=== PATIENT | female | born 1990 | race Caucasian/White ===

== ENCOUNTER 2019-06-08 17:13 | Emergency (ER) | payer OTHER ==
[2019-06-08] MEDS ORDERED: Acetaminophen 325 MG Tab PO ONE (17:50)
[2019-06-08] MEDS ORDERED: LORazepam 0.5 MG Tab PO ONE (17:50)
--- NOTE | 2019-06-08 18:03 | EDM.PDOC ---
ED HPI GENERAL MEDICAL PROBLEM - General Chief Complaint: General Stated Complaint: BODYACHE/BACK PAIN Time Seen by Provider: 06/08/19 17:37 Source of Information: Reports: Patient, Police (welfare officer present), RN Notes Reviewed History Limitations: Reports: No Limitations - History of Present Illness INITIAL COMMENTS - FREE TEXT/NARRATIVE: Patient is a 28-year-old female who presents to the ED for the evaluation of some generalized body pains. Patient is 39 weeks , and was cleared by OB at this time, there is nothing wrong with the patient, from an OB standpoint. [facility] in [facility]. Patient states that for the past couple months she has been having some intermittent pains, she states it does hurt to walk quite a bit. She is complaining of generalized excruciating pain over her entire body, does worsen with movement. She does not relate any trauma. She has been given some Tylenol for this at the alf. This does seem to help a little bit. Patient states that the pain did worsen today however at 2 PM. She was brought to [place] to have her evaluated, and then brought here for further evaluation of the symptoms. Patient does have a history of anxiety, and PTSD. 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 Denies: Diarrhea, Vomiting Musculoskeletal: Reports: Muscle Pain (generalized myalgias, seem to be intermittent, worsen w movement and do move around body.) Psychiatric: Reports: Anxiety ED EXAM, GENERAL - Physical Exam Exam: See Below Exam Limited By: No Limitations General Appearance: Alert, WD/WN, No Apparent Distress Eye Exam: Bilateral Eye: EOMI, Normal Inspection, PERRL Ears: Normal External Exam Nose: Normal Inspection Throat/Mouth: Normal Inspection, Normal Lips, Normal Teeth, Normal Gums, Normal Oropharynx, Normal Voice, No Airway Compromise Head: Atraumatic, Normocephalic Neck: Normal Inspection Respiratory/Chest: No Respiratory Distress, Lungs Clear, Normal Breath Sounds, No Accessory Muscle Use, Chest Non-Tender Cardiovascular: Normal Peripheral Pulses, Regular Rate, Rhythm, No Murmur GI/Abdominal: Normal Bowel Sounds, Soft, Non-Tender, No Distention, No Mass Extremities: Normal Inspection, Normal Capillary Refill Neurological: Alert, Oriented, Normal Cognition, No Motor/Sensory Deficits Psychiatric: Normal Affect, Normal Mood Skin Exam: Warm, Dry, Intact, Normal Color, No Rash Course - Vital Signs Last Recorded V/S: Last Vital Signs Temp 98.8 F 06/08/19 19:25 Pulse 98 06/08/19 19:25 Resp 18 06/08/19 19:25 BP 117/86 06/08/19 19:25 Pulse Ox 94 L 06/08/19 19:25 - Orders/Labs/Meds Meds: Medications Discontinued Medications Generic Name Dose Route Start Last Admin Trade Name Yaw PRN Reason Stop Dose Admin Acetaminophen 975 mg 06/08/19 17:50 06/08/19 18:42 Tylenol PO 06/08/19 17:51 975 mg NOW ONE Administration Lorazepam 1 mg 06/08/19 17:50 06/08/19 18:42 Ativan PO 06/08/19 17:51 1 mg ONETIME ONE Administration - Re-Assessments/Exams Free Text/Narrative Re-Assessment/Exam: 06/08/19 18:22 Patient presents to the ED for evaluation of her all over body pain. I do suspect this is mostly anxiety in nature. I did provide 975 mg of Tylenol, and 1 mg Ativan for initial management. Will reassess when the meds have been given. Departure - Departure Time of Disposition: 18:52 Disposition: Home, Self-Care 01 Condition: Fair Clinical Impression: Anxiety as acute reaction to exceptional stress - Discharge Information *PRESCRIPTION DRUG MONITORING PROGRAM REVIEWED*: No *COPY OF PRESCRIPTION DRUG MONITORING REPORT IN PATIENT EVA: No Prescriptions: LORazepam [Ativan] 1 mg PO TID PRN #12 tab PRN Reason: Anxiety Instructions: Anxiety Referrals: Melody Ayon MD [Primary Care Provider] - Forms: ED Department Discharge Additional Instructions: You were evaluated in the ER today regarding your body pain and anxiety. You were given 975 mg of Tylenol for your pain, and 1 mg Ativan for anxiety. This did seem to help relieve most of your symptoms. You will be given a prescription for Ativan, 1 mg 3 times a day as needed for further anxiety. Ativan can be addictive, but if used add an as-needed basis during , this should not provide any detrimental effects to the fetus or you. Please use sparingly. Unfortunately, the regular muscle relaxers we use are all contraindicated in . Recommend you take Tylenol, at least 500 mg every 6 hours for pain relief. Do not exceed 4000 mg in a 24-hour time span. Please try to rest as much as possible over the next week, until your due date. Recommend bedrest as allowed. Please return to the ER at any time if your symptoms change or worsen. Sepsis Event Note - Evaluation Sepsis Screening Result: No Definite Risk - Focused Exam Vital Signs: Vital Signs Temp Pulse Resp BP Pulse Ox 06/08/19 19:25 98.8 F 98 18 117/86 94 L 06/08/19 17:24 98.6 F Date Exam was Performed: 06/08/19 Time Exam was Performed: 21:01
== END 2019-06-08 19:25 | disposition home or self-care (01) ==
LOC: JD.ED 17:13
DX: O99.343 Other mental disorders complicating pregnancy, third trimester (principal); F41.1 Generalized anxiety disorder; F43.0 Acute stress reaction; Z3A.39 39 weeks gestation of pregnancy; Z87.891 Personal history of nicotine dependence
CPT/HCPCS: 99283; A9270

== ENCOUNTER 2019-06-14 08:24 | Inpatient (IN) | payer OTHER ==
[2019-06-14] MEDS ORDERED: Ondansetron 4 MG/2 ML SDV IVPUSH PRN (19:13)
[2019-06-14] MEDS ORDERED: Lidocaine 1% 50 ML MDV INJECT ONE (19:13)
[2019-06-14] MEDS ORDERED: Acetaminophen 325 MG Tab PO PRN (19:13)
[2019-06-14] MEDS ORDERED: Calcium Carbonate 500 MG Tab.Chew PO PRN (19:13)
[2019-06-14] MEDS ORDERED: Sodium Chloride 0.9% 10 ML Syringe FLUSH PRN (19:13)
[2019-06-14] MEDS ORDERED: Oxytocin/Lactated Ringers 10 UNIT/1,000 ML BAG IV SCH ×2 (19:15)
[2019-06-14] MEDS: Lactated Ringers 1,000 ML IV SCH (22:46)
[2019-06-15] MEDS ORDERED: Nalbuphine 10 MG/ML Syringe IM ONE (06:57)
[2019-06-15] MEDS ORDERED: ePHEDrine 50 MG/ML SDV IVPUSH PRN (07:06)
[2019-06-15] MEDS ORDERED: Ondansetron 4 MG/2 ML SDV IVPUSH PRN (07:06)
[2019-06-15] MEDS ORDERED: fentaNYL 100 MCG/2 ML SDV EPIDUR PRN (07:06)
--- NOTE | 2019-06-15 07:09 | PCM.PREANE ---
Preanesthetic Assessment - Anesthesia/Transfusion/Family Hx Anesthesia History: Prior Anesthesia Without Reaction Family History of Anesthesia Reaction: No Transfusion History: No Prior Transfusion(s) Intubation History: Unknown - Review of Systems General: No Symptoms Pulmonary: No Symptoms (Former Smoker:) Cardiovascular: No Symptoms Gastrointestinal: No Symptoms Neurological: No Symptoms Other: Reports: None, Anxiety (PTSD, Bipolar) - Physical Assessment NPO Status Date: 06/15/19 Vital Signs: Last Vital Signs Temp 37.0 C 06/14/19 19:13 Pulse 95 06/14/19 21:34 Resp 15 06/14/19 19:13 BP 123/79 06/14/19 21:02 Pulse Ox 97 06/14/19 19:22 Height: 1.7 m Weight: 94.347 kg ASA Class: 2 Mental Status: Alert & Oriented x3 Airway Class: Mallampati = 2 Dentition: Reports: Normal Dentition, Caries Thyro-Mental Finger Breadths: 3 Mouth Opening Finger Breadths: 3 ROM/Head Extension: Full Lungs: Clear to Auscultation, Normal Respiratory Effort Cardiovascular: Regular Rate, Regular Rhythm, No Murmurs - Lab Values: Laboratory Last Values WBC 7.96 K/mm3 (3.98-10.04) 06/14/19 19: RBC 4.13 M/mm3 (3.98-5.22) 06/14/19 19:29 Hgb 12.1 gm/dl (11.2-15.7) 06/14/19 19:29 Hct 37.5 % (34.1-44.9) 06/14/19 19: MCV 90.8 fl (79.4-94.8) 06/14/19 19: MCH 29.3 pg (25.6-32.2) 06/14/19 19:29 MCHC 32.3 g/dl (32.2-35.5) 06/14/19 19:29 RDW Std Deviation 48.7 fL (36.4-46.3) H 06/14/19 19:29 Plt Count 181 K/mm3 (182-369) L 06/14/19 19:29 MPV 10.9 fl (9.4-12.3) 06/14/19 19: Neut % (Auto) 68.1 % (34.0-71.1) 06/14/19 19:29 Lymph % (Auto) 22.0 % (19.3-51.7) 06/14/19 19:29 Turner % (Auto) 7.7 % (4.7-12.5) 06/14/19 19: Eos % (Auto) 0.9 (0.7-5.8) 06/14/19: Baso % (Auto) 0.3 % (0.1-1.2) 06/14/19 19: Neut # (Auto) 5.43 K/mm3 (1.56-6.13) 06/14/19 19: Lymph # (Auto) 1.75 K/mm3 (1.18-3.74) 06/14/19: Turner # (Auto) 0.61 K/mm3 (0.24-0.36) H 06/14/19 19: Eos # (Auto) 0.07 K/mm3 (0.04-0.36) 06/14/19 19: Baso # (Auto) 0.02 K/mm3 (0.01-0.08) 06/14/19 19:29 Urine Opiates Screen Negative (GEOSNA=293) 06/14/19 19:50 Ur Buprenorphine Scrn Negative (CUTOFF=10) 06/14/19 19:50 Ur Oxycodone Screen Negative (BVA8QT=121) 06/14/19 19:50 Urine Methadone Screen Negative (ZTXYOC=521) 06/14/19 19:50 Ur Propoxyphene Screen Negative (CGUIZO=032) 06/14/19 19:50 Ur Barbiturates Screen Negative (AVVWOD=119) 06/14/19 19:50 Ur Tricyclics Screen Negative (ZQJPMJ=620) 06/14/19 19:50 Ur Phencyclidine Scrn Negative (CUTOFF=25) 06/14/19 19:50 Ur Amphetamine Screen Negative (HAXYKY=981) 06/14/19 19:50 U Methamphetamines Scrn Negative (UIKUJG=582) 06/14/19 19:50 U Benzodiazepines Scrn Negative (ONXYZH=549) 06/14/19 19:50 U Cocaine Metab Screen Negative (KEQGTU=632) 06/14/19 19:50 U Marijuana (THC) Screen Negative (CUTOFF=50) 06/14/19 19:50 RPR Non-reactive (NONREACTIVE) 06/14/19 19:29 MRSA (PCR) Negative 06/14/19 19:50 Above labs reviewed and noted and within acceptable ranges to proceed with epidural if desired. 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: 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: Psychiatric History: Reports: Anxiety, Bipolar, PTSD - Infectious Disease History Infectious Disease History: Reports: MRSA Other Infectious Disease History: Cleared for MRSA in the clinic, 2nd nasal swab taken today - Past Surgical History HEENT Surgical History: Reports: Other (See Below) Other HEENT Surgeries/Procedures: wisdom teeth-removed as a teenager GI Surgical History: Reports: None - SUBSTANCE USE Smoking Status *Q: Former Smoker Tobacco Use Within Last Twelve Months: Cigarettes Second Hand Smoke Exposure: No Recreational Drug Use History: No - HOME MEDS Home Medications: Home Meds LORazepam [Ativan] 1 mg PO TID PRN #12 tab 06/08/19 [Rx] Vilazodone Hydrochloride [Viibryd] 20 mg PO DAILY 06/08/19 [History] Calcium Carbonate [Tums] 500 mg PO ASDIRECTED 06/14/19 [History] [place] Butter/Phenylephrine [Preparation H Supp] 1 each RC ASDIRECTED 06/14/19 [ History] Docusate Sodium [Colace] 1 cap PO DAILY 06/14/19 [History] CSZ200/Iron Fumarate/FA/DSS [ 19 Tablet] 1 each PO DAILY 06/14/19 [ History] - CURRENT (IN HOUSE) MEDS Current Meds: Current Medications Acetaminophen (Tylenol) 650 mg PO Q4H PRN PRN Reason: Pain (Mild 1-3) and fever Calcium Carbonate/Glycine (Tums) 1,000 mg PO Q2H PRN PRN Reason: Indigestion Lactated Ringer's (Ringers, Lactated) 1,000 mls @ 100 mls/hr IV ASDIRECTED BRIANA Last Admin: 06/14/19 22:46 Dose: 100 mls/hr Oxytocin/Lactated Ringer's (Pitocin In Lr 10 Units/1,000 Ml) 10 unit in 1,000 mls @ 12 mls/hr IV TITRATE BRIANA; Protocol Last Titration: 06/15/19 03:15 Dose: 20 munits/min, 120 mls/hr Oxytocin/Lactated Ringer's (Pitocin In Lr 10 Units/1,000 Ml) 10 unit in 1,000 mls @ 500 mls/hr IV .CONTINUOUS BRIANA Ondansetron HCl (Zofran) 4 mg IVPUSH Q4H PRN PRN Reason: Nausea/Vomiting Sodium Chloride (Saline Flush) 10 ml FLUSH ASDIRECTED PRN PRN Reason: Keep Vein Open Discontinued Medications Lidocaine HCl (Xylocaine 1%) 50 ml INJECT ONETIME ONE Stop: 06/14/19 19:14 Nalbuphine HCl (Nubain) 10 mg IM ONETIME ONE Stop: 06/15/19 06:58 Last Admin: 06/15/19 07:04 Dose: Not Given
[2019-06-15] MEDS ORDERED: Bupivacaine/fentaNYL/NS 100 ML Bag EPIDUR SCH (07:15)
[2019-06-15] MEDS: Lactated Ringers 1,000 ML IV SCH (07:48)
--- NOTE | 2019-06-15 08:15 | PCM.SN ---
- Free Text/Narrative Note: Anesthesia Note: Start: 0750 Stop: 0815 Anesthesia requested for epidural placement. Upon arrival patient dilated to 8cm. Assessment and consent obtained. Upon the placement of epidural, patient c/o of increased pressure, now complete. No epidural placed. Verbal reassurance given. Dr. Ayon called and present for delivery.
[2019-06-15] MEDS ORDERED: Misoprostol 200 MCG Tab ONE (08:27)
--- NOTE | 2019-06-15 08:47 | PCM.SN ---
- Free Text/Narrative Note: Stage I - Patient presented for induction of labor. Pitocin. AROM of meconium. Progressed to complete with reassuring FHT. Stage II - of viable male, 4210g, 7/9 APGARS at 824. Head delivered in controlled manner over intact perineum. Body and shoulders atraumatically. To maternal abdomen. Initially no cry but but vigorous by 1 minute. Cord clamped and cut and to warmer. Cord blood and cord segment sent. Stage III - of intact placenta, 3vc, no laceration. EBL 500. Pitocin and cytotec buccal given.
[2019-06-15] MEDS ORDERED: Benzocaine/Menthol 20%-0.5% Spray 56 GM Canister TOP PRN (09:08)
[2019-06-15] MEDS ORDERED: Hydrocortisone Acetate 25 MG Supp RECTAL PRN (09:08)
[2019-06-15] MEDS ORDERED: Witch Hazel Medicated Pads 40/Jar TOP PRN (09:08)
[2019-06-15] MEDS ORDERED: Acetaminophen 325 MG Tab PO PRN (14:52)
[2019-06-15] MEDS ORDERED: Docusate Sodium 100 MG Cap PO PRN (14:52)
[2019-06-15] MEDS: Ibuprofen 600 MG Tab PO PRN ×2 (15:02→22:41)
[2019-06-15] MEDS ORDERED: LORazepam 1 MG Tab PO PRN (18:24)
[2019-06-15] MEDS: Cyclobenzaprine 10 MG Tab PO PRN (19:04)
[2019-06-15] MEDS: LORazepam 1 MG Tab PO PRN (22:41)
--- NOTE | 2019-06-16 04:14 | PCM.LDHP ---
L&D History of Present Illness - General Date of Service: 06/14/19 Admit Problem/Dx: Admission Diagnosis/Problem Admission Diagnosis/Problem Source of Information: Patient - History of Present Illness Introduction:: 29 year old here for induction. Pain Score: 2 - Related Data Allergies/Adverse Reactions: Allergies Allergy/AdvReac Type Severity Reaction Status Date / Time No Known Allergies Allergy Verified 06/14/19 19:12 Home Medications: Home Meds LORazepam [Ativan] 1 mg PO TID PRN #12 tab 06/08/19 [Rx] Vilazodone Hydrochloride [Viibryd] 20 mg PO DAILY 06/08/19 [History] Calcium Carbonate [Tums] 500 mg PO ASDIRECTED 06/14/19 [History] [place] Butter/Phenylephrine [Preparation H Supp] 1 each RC ASDIRECTED 06/14/19 [ History] Docusate Sodium [Colace] 1 cap PO DAILY 06/14/19 [History] PHT178/Iron Fumarate/FA/DSS [ 19 Tablet] 1 each PO DAILY 06/14/19 [ History] Past Medical History - Past Health History Medical/Surgical History: Denies Medical/Surgical History HEENT History: Reports: None 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: Psychiatric History: Reports: Anxiety, Bipolar, PTSD - Infectious Disease History Infectious Disease History: Reports: MRSA Other Infectious Disease History: Cleared for MRSA in the clinic, 2nd nasal swab taken today - Past Surgical History HEENT Surgical History: Reports: Other (See Below) Other HEENT Surgeries/Procedures: wisdom teeth-removed as a teenager GI Surgical History: Reports: None Social & Family History - Family History Family Medical History: Noncontributory - Tobacco Use Smoking Status *Q: Former Smoker Years of Tobacco use: 15 Packs/Tins Daily: 0.5 Used Tobacco, but Quit: Yes Month/Year Tobacco Last Used: 11/2018 Second Hand Smoke Exposure: No - Caffeine Use Caffeine Use: Reports: None - Recreational Drug Use Recreational Drug Use: No H&P Review of Systems - Review of Systems: Review Of Systems: See Below General: Reports: No Symptoms HEENT: Reports: No Symptoms Pulmonary: Reports: No Symptoms Cardiovascular: Reports: No Symptoms Gastrointestinal: Reports: No Symptoms Genitourinary: Reports: No Symptoms Musculoskeletal: Reports: No Symptoms Skin: Reports: No Symptoms Psychiatric: Reports: No Symptoms Neurological: Reports: No Symptoms Hematologic/Lymphatic: Reports: No Symptoms Immunologic: Reports: No Symptoms L&D Exam - Exam Exam: See Below - Vital Signs Vital Signs: Last Vital Signs Temp 37.2 C 06/15/19 20:39 Pulse 94 06/15/19 20:39 Resp 15 06/15/19 20:39 BP 107/63 06/15/19 20:39 Pulse Ox 98 06/15/19 20:39 Weight: 94.347 kg - OB Specific Contraction Intensity: Moderate to Strong Movement: Active Heart Tones: Present Heart Rate (FHR) Variability: Moderate (6-25 bmp) Presentation: Vertex - Bryant Score Bryant Score Cervix Position: Anterior Bryant Score Consistency: Soft Bryant Score Effacement: 51-70% Bryant Score Dilation: 3-4 cm Bryant Score Infant's Station: -2 Bryant Score Total: 9 - Exam General: Alert, Oriented HEENT: PERRLA, Conjunctiva Clear, EACs Clear, EOMI, Hearing Intact, Mucosa Moist & Amery, Nares Patent, Normal Nasal Septum, Posterior Pharynx Clear, TMs Clear Neck: Supple, Trachea Midline Lungs: Clear to Auscultation, Normal Respiratory Effort Cardiovascular: Regular Rate, Regular Rhythm GI/Abdominal Exam: Normal Bowel Sounds, Soft, Non-Tender, No Organomegaly, No Distention, No Abnormal Bruit, No Mass, Pelvis Stable Rectal Exam: Normal Exam, Normal Rectal Tone Extremities: Normal Inspection, Normal Range of Motion, Non-Tender, No Pedal Edema, Normal Capillary Refill Skin: Warm, Dry, Intact Neurological: Cranial Nerves Intact, Reflexes Equal Bilateral Psychiatric: Alert, Normal Affect, Normal Mood - Patient Data Result Diagrams: 06/14/19 19:29 Problem List Initiated/Reviewed/Updated: Yes Orders Last 24hrs: Active Orders 24 hr Category Date Time Status Activity as Tolerated [RC] PER UNIT ROUTINE Care 06/15/19 09:08 Active Notify Provider [RC] ASDIRECTED Care 06/15/19 07:06 Inactive Oxygen Therapy [RC] ASDIRECTED Care 06/15/19 07:06 Inactive Pulse Oximetry [RC] ASDIRECTED Care 06/15/19 07:06 Inactive Vital Signs [RC] 09,15,21,03 Care 06/15/19 09:08 Active CBC W/O DIFF,HEMOGRAM [HEME] AM Lab 06/16/19 05:11 Ordered Acetaminophen [Tylenol] Med 06/15/19 14:52 Active 650 mg PO Q4H PRN Benzocaine/Menthol [Dermoplast Pain Relief [place]] Med 06/15/19 09:08 Active See Dose Instructions TOP ASDIRECTED PRN Cyclobenzaprine [Flexeril] Med 06/15/19 18:24 Active 10 mg PO TID PRN Docusate Sodium [Colace] Med 06/15/19 14:52 Active 100 mg PO BID PRN Hydrocortisone Acetate [Anucort-HC] Med 06/15/19 09:08 Active 25 mg RECTAL BID PRN Ibuprofen [Motrin] Med 06/15/19 14:52 Active 600 mg PO Q4H PRN LORazepam [Ativan] Med 06/15/19 20:06 Active 1 mg PO Q6H PRN witch Annabella [Tucks] Med 06/15/19 09:08 Active 1 pad TOP ASDIRECTED PRN Assess Lochia [WOMSER] Per Unit Routine Oth 06/15/19 09:08 Ordered Assess Uterine Involution [WOMSER] Per Unit Routine Oth 06/15/19 09:08 Ordered Breast Pump [WOMSER] Per Unit Routine Oth 06/15/19 09:08 Ordered Heat Therapy [OM.PC] PRN Oth 06/15/19 09:08 Ordered Heat Therapy [OM.PC] PRN Oth 06/16/19 09:08 Ordered Medication Administration Instruction [OM.PC] Routine Oth 06/15/19 09:08 Ordered Perineal Care [OM.PC] Per Unit Routine Oth 06/15/19 09:08 Ordered Sitz Bath [OM.PC] Per Unit Routine Oth 06/15/19 09:08 Ordered Medication Orders Acetaminophen (Tylenol) 650 mg PO Q4H PRN PRN Reason: Pain Last Admin: 06/15/19 16:56 Dose: 650 mg Benzocaine/Menthol (Dermoplast Pain Relief [place]) 0 gm TOP ASDIRECTED PRN PRN Reason: Perineal Comfort Measure Cyclobenzaprine HCl (Flexeril) 10 mg PO TID PRN PRN Reason: muscle ache Last Admin: 06/15/19 19:04 Dose: 10 mg Docusate Sodium (Colace) 100 mg PO BID PRN PRN Reason: Constipation Hydrocortisone Acetate (Anucort-Hc) 25 mg RECTAL BID PRN PRN Reason: Hemorrhoid pain Ibuprofen (Motrin) 600 mg PO Q4H PRN PRN Reason: Pain Last Admin: 06/15/19 22:41 Dose: 600 mg Admin: 06/15/19 15:02 Dose: 600 mg Lorazepam (Ativan) 1 mg PO Q6H PRN PRN Reason: ANXIETY Last Admin: 06/15/19 22:41 Dose: 1 mg Witch Annabella (Tucks) 1 pad TOP ASDIRECTED PRN PRN Reason: Pain Assessment/Plan Comment:: Here for induction. Pitocin. AROM clear fluid.
--- NOTE | 2019-06-16 04:18 | PCM.PNPP ---
- General Info Date of Service: 06/16/19 Functional Status: Reports: Pain Controlled - Review of Systems General: Reports: No Symptoms HEENT: Reports: No Symptoms Pulmonary: Reports: No Symptoms Cardiovascular: Reports: No Symptoms Gastrointestinal: Reports: No Symptoms Genitourinary: Reports: No Symptoms Musculoskeletal: Reports: No Symptoms Skin: Reports: No Symptoms Neurological: Reports: No Symptoms Psychiatric: Reports: No Symptoms - General Info Date of Service: 06/16/19 - Patient Data Vital Signs - Most Recent: Last Vital Signs Temp 37.2 C 06/15/19 20:39 Pulse 94 06/15/19 20:39 Resp 15 06/15/19 20:39 BP 107/63 06/15/19 20:39 Pulse Ox 98 06/15/19 20:39 Weight - Most Recent: 94.347 kg I&O - Last 24 Hours: Intake & Output 06/15/19 06/15/19 06/16/19 14:59 22:59 06:59 Intake Total 3320 Balance 3320 Med Orders - Current: Current Medications Acetaminophen (Tylenol) 650 mg PO Q4H PRN PRN Reason: Pain Last Admin: 06/15/19 16:56 Dose: 650 mg Benzocaine/Menthol (Dermoplast Pain Relief [place]) 0 gm TOP ASDIRECTED PRN PRN Reason: Perineal Comfort Measure Cyclobenzaprine HCl (Flexeril) 10 mg PO TID PRN PRN Reason: muscle ache Last Admin: 06/15/19 19:04 Dose: 10 mg Docusate Sodium (Colace) 100 mg PO BID PRN PRN Reason: Constipation Hydrocortisone Acetate (Anucort-Hc) 25 mg RECTAL BID PRN PRN Reason: Hemorrhoid pain Ibuprofen (Motrin) 600 mg PO Q4H PRN PRN Reason: Pain Last Admin: 06/15/19 22:41 Dose: 600 mg Lorazepam (Ativan) 1 mg PO Q6H PRN PRN Reason: ANXIETY Last Admin: 06/15/19 22:41 Dose: 1 mg Witch Annabella (Tucks) 1 pad TOP ASDIRECTED PRN PRN Reason: Pain Discontinued Medications Acetaminophen (Tylenol) 650 mg PO Q4H PRN PRN Reason: Pain (Mild 1-3) and fever Calcium Carbonate/Glycine (Tums) 1,000 mg PO Q2H PRN PRN Reason: Indigestion Ephedrine Sulfate (Ephedrine Sulfate) 5 mg IVPUSH ASDIRECTED PRN PRN Reason: Hypotension Fentanyl (Sublimaze) 100 mcg EPIDUR Q3H PRN PRN Reason: Pain Last Admin: 06/15/19 07:49 Dose: 100 mcg Fentanyl/Bupivacaine HCl (Fentanyl/Bupivacaine/Ns 2 Mcg-0.125% 100 Ml) 100 ml EPIDUR ASDIRECTED BRIANA Last Admin: 06/15/19 07:49 Dose: 100 ml Lactated Ringer's (Ringers, Lactated) 1,000 mls @ 100 mls/hr IV ASDIRECTED BRIANA Last Admin: 06/15/19 07:48 Dose: 100 mls/hr Oxytocin/Lactated Ringer's (Pitocin In Lr 10 Units/1,000 Ml) 10 unit in 1,000 mls @ 12 mls/hr IV TITRATE BRIANA; Protocol Last Titration: 06/15/19 03:15 Dose: 20 munits/min, 120 mls/hr Oxytocin/Lactated Ringer's (Pitocin In Lr 10 Units/1,000 Ml) 10 unit in 1,000 mls @ 500 mls/hr IV .CONTINUOUS BRIANA Lidocaine HCl (Xylocaine 1%) 50 ml INJECT ONETIME ONE Stop: 06/14/19 19:14 Last Admin: 06/15/19 22:15 Dose: Not Given Misoprostol (Cytotec) Confirm Administered Dose 600 mcg .ROUTE .STK-MED ONE Stop: 06/15/19 08:28 Last Admin: 06/15/19 10:48 Dose: 600 mcg Nalbuphine HCl (Nubain) 10 mg IM ONETIME ONE Stop: 06/15/19 06:58 Last Admin: 06/15/19 07:04 Dose: Not Given Ondansetron HCl (Zofran) 4 mg IVPUSH Q4H PRN PRN Reason: Nausea/Vomiting Ondansetron HCl (Zofran) 4 mg IVPUSH ONETIME PRN PRN Reason: Nausea/Vomiting Sodium Chloride (Saline Flush) 10 ml FLUSH ASDIRECTED PRN PRN Reason: Keep Vein Open - Interaction Support Person: Other (see below) - Recovery Exam Fundal Tone: Firm Fundal Level: At Umbilicus Fundal Placement: Midline Lochia Amount: Small Lochia Color: Rubra/Red Perineum Description: Intact, Minimal Bruising/Swelling Episiotomy/Laceration: None Bladder Status: Voiding Urinary Elimination: Voided - Exam General: Alert, Oriented HEENT: Pupils Equal Neck: Supple Lungs: Clear to Auscultation, Normal Respiratory Effort GI/Abdominal Exam: Normal Bowel Sounds, Soft, Non-Tender, No Organomegaly, No Distention, No Abnormal Bruit, No Mass, Pelvis Stable Extremities: Normal Inspection, Normal Range of Motion, Non-Tender, No Pedal Edema, Normal Capillary Refill Skin: Warm, Dry, Intact Wound/Incisions: Healing Well Neurological: No New Focal Deficit Psy/Mental Status: Alert, Normal Affect, Normal Mood - Problem List Review Problem List Initiated/Reviewed/Updated: Yes - My Orders Last 24 Hours: My Active Orders 06/15/19 09:08 Activity as Tolerated [RC] PER UNIT ROUTINE Vital Signs [RC] 09,15,21,03 Benzocaine/Menthol [Dermoplast Pain Relief [place]] See Dose Instructions TOP ASDIRECTED PRN Hydrocortisone Acetate [Anucort-HC] 25 mg RECTAL BID PRN witch Annabella [Tucks] 1 pad TOP ASDIRECTED PRN Assess Lochia [WOMSER] Per Unit Routine Assess Uterine Involution [WOMSER] Per Unit Routine Breast Pump [WOMSER] Per Unit Routine Heat Therapy [OM.PC] PRN Medication Administration Instruction [OM.PC] Routine Perineal Care [OM.PC] Per Unit Routine Sitz Bath [OM.PC] Per Unit Routine 06/15/19 14:52 Acetaminophen [Tylenol] 650 mg PO Q4H PRN Docusate Sodium [Colace] 100 mg PO BID PRN Ibuprofen [Motrin] 600 mg PO Q4H PRN 06/15/19 18:24 Cyclobenzaprine [Flexeril] 10 mg PO TID PRN 06/15/19 20:06 LORazepam [Ativan] 1 mg PO Q6H PRN 06/16/19 05:11 CBC W/O DIFF,HEMOGRAM [HEME] AM 06/16/19 09:08 Heat Therapy [OM.PC] PRN - Assessment Assessment:: Term delivery. PPD 1 Doing great. Discharge tomorrow.
[2019-06-16] MEDS: Ibuprofen 600 MG Tab PO PRN ×3 (08:08→23:47)
[2019-06-16] MEDS: Cyclobenzaprine 10 MG Tab PO PRN ×2 (13:30→21:31)
[2019-06-16] MEDS: LORazepam 1 MG Tab PO PRN ×2 (15:07→22:00)
[2019-06-17] MEDS: LORazepam 1 MG Tab PO PRN (08:15)
--- NOTE | 2019-06-17 08:47 | PCM.DCSUM1 ---
Discharge Summary - Hospital Course Free Text/Narrative:: Stage I - Patient presented for induction of labor. Pitocin. AROM of meconium. Progressed to complete with reassuring FHT. Stage II - of viable male, 4210g, 7/9 APGARS at 824. Head delivered in controlled manner over intact perineum. Body and shoulders atraumatically. To maternal abdomen. Initially no cry but but vigorous by 1 minute. Cord clamped and cut and to warmer. Cord blood and cord segment sent. Stage III - of intact placenta, 3vc, no laceration. EBL 500. Pitocin and cytotec buccal given. patient is done well. Even with the blood loss she is doing well. She is bottlefeeding. Ready for discharge. Discharged home to private residence. Condition: Good. Diagnosis: Stroke: No - Discharge Data Discharge Date: 06/17/19 Discharge Disposition: Home, Self-Care 01 Condition: Good - Referral to Home Health Primary Care Physician: Melody Ayon MD - Patient Instructions Diet: Regular Diet as Tolerated Activity: As Tolerated (No intercourse or tampons until bleeding results) Driving: May Drive Today Showering/Bathing: May Shower (May take a bath) Notify Provider of: Fever, Increased Pain, Swelling and Redness, Nausea and/or Vomiting - Discharge Plan Home Medications: Home Meds LORazepam [Ativan] 1 mg PO TID PRN #12 tab 06/08/19 [Rx] Vilazodone Hydrochloride [Viibryd] 20 mg PO DAILY 06/08/19 [History] Sugarcreek Butter/Phenylephrine [Preparation H] 1 each RC ASDIRECTED 06/14/19 [ History] Docusate Sodium [Colace] 1 cap PO DAILY 06/14/19 [History] FEV010/Iron Fumarate/FA/DSS [ 19 Tablet] 1 each PO DAILY 06/14/19 [ History] Acetaminophen [Tylenol] 650 mg PO Q4H PRN tablet 06/17/19 [Rx] Ibuprofen [Motrin] 600 mg PO Q4H PRN tablet 06/17/19 [Rx] Patient Handouts: Care After Vaginal Delivery Referrals: Melody Ayon MD [Primary Care Provider] - (Patient is to call clinic in 2 days to make an appointment to see Dr. Ayon as recommended.) - Discharge Summary/Plan Comment DC Time >30 min.: No Discharge Summary/Plan Comment: Discharge instructions: 1. Discharge home 2. Diet, activity and follow-up discussed with patient. Recommend regular diet. 3. Precautions given concern increased pain, bleeding, temperature, signs/ symptoms of DVT/PE. 4. Medications per home medication was printed, discussed with and given to the patient. 5. Return to clinic-Dr. Melody Ayon, [facility]-patient is to call in 2 days for a follow-up appointment. Diagnosis: Term -delivered Condition: Good - Patient Data Vitals - Most Recent: Last Vital Signs Temp 36.4 C 06/17/19 03:34 Pulse 80 06/17/19 03:34 Resp 16 06/17/19 03:34 BP 104/76 06/17/19 03:34 Pulse Ox 96 06/17/19 03:34 Weight - Most Recent: 94.347 kg I&O - Last 24 hours: Intake & Output 06/16/19 06/17/19 06/17/19 22:59 06:59 14:59 Intake Total 180 Balance 180 Med Orders - Current: Current Medications Acetaminophen (Tylenol) 650 mg PO Q4H PRN PRN Reason: Pain Last Admin: 06/15/19 16:56 Dose: 650 mg Benzocaine/Menthol (Dermoplast Pain Relief Steen) 0 gm TOP ASDIRECTED PRN PRN Reason: Perineal Comfort Measure Cyclobenzaprine HCl (Flexeril) 10 mg PO TID PRN PRN Reason: muscle ache Last Admin: 06/16/19 21:31 Dose: 10 mg Docusate Sodium (Colace) 100 mg PO BID PRN PRN Reason: Constipation Hydrocortisone Acetate (Anucort-Hc) 25 mg RECTAL BID PRN PRN Reason: Hemorrhoid pain Ibuprofen (Motrin) 600 mg PO Q4H PRN PRN Reason: Pain Last Admin: 06/16/19 23:47 Dose: 600 mg Lorazepam (Ativan) 1 mg PO Q6H PRN PRN Reason: ANXIETY Last Admin: 06/17/19 08:15 Dose: 1 mg Viibryd 20 Mg 0 each PO DAILY BRIANA Last Admin: 06/17/19 08:05 Dose: 1 each Witch Magaly (Tucks) 1 pad TOP ASDIRECTED PRN PRN Reason: Pain Discontinued Medications Acetaminophen (Tylenol) 650 mg PO Q4H PRN PRN Reason: Pain (Mild 1-3) and fever Calcium Carbonate/Glycine (Tums) 1,000 mg PO Q2H PRN PRN Reason: Indigestion Ephedrine Sulfate (Ephedrine Sulfate) 5 mg IVPUSH ASDIRECTED PRN PRN Reason: Hypotension Fentanyl (Sublimaze) 100 mcg EPIDUR Q3H PRN PRN Reason: Pain Last Admin: 06/15/19 07:49 Dose: 100 mcg Fentanyl/Bupivacaine HCl (Fentanyl/Bupivacaine/Ns 2 Mcg-0.125% 100 Ml) 100 ml EPIDUR ASDIRECTED BRIANA Last Admin: 06/15/19 07:49 Dose: 100 ml Lactated Ringer's (Ringers, Lactated) 1,000 mls @ 100 mls/hr IV ASDIRECTED BRIANA Last Admin: 06/15/19 07:48 Dose: 100 mls/hr Oxytocin/Lactated Ringer's (Pitocin In Lr 10 Units/1,000 Ml) 10 unit in 1,000 mls @ 12 mls/hr IV TITRATE BRIANA; Protocol Last Titration: 06/15/19 03:15 Dose: 20 munits/min, 120 mls/hr Oxytocin/Lactated Ringer's (Pitocin In Lr 10 Units/1,000 Ml) 10 unit in 1,000 mls @ 500 mls/hr IV .CONTINUOUS BRIANA Lidocaine HCl (Xylocaine 1%) 50 ml INJECT ONETIME ONE Stop: 06/14/19 19:14 Last Admin: 06/15/19 22:15 Dose: Not Given Lorazepam (Ativan) 1 mg PO Q6H PRN PRN Reason: ANXIETY Last Admin: 06/16/19 15:07 Dose: 1 mg Misoprostol (Cytotec) Confirm Administered Dose 600 mcg .ROUTE .STK-MED ONE Stop: 06/15/19 08:28 Last Admin: 06/15/19 10:48 Dose: 600 mcg Nalbuphine HCl (Nubain) 10 mg IM ONETIME ONE Stop: 06/15/19 06:58 Last Admin: 06/15/19 07:04 Dose: Not Given Ondansetron HCl (Zofran) 4 mg IVPUSH Q4H PRN PRN Reason: Nausea/Vomiting Ondansetron HCl (Zofran) 4 mg IVPUSH ONETIME PRN PRN Reason: Nausea/Vomiting Sodium Chloride (Saline Flush) 10 ml FLUSH ASDIRECTED PRN PRN Reason: Keep Vein Open
[2019-06-17] MEDS: Cyclobenzaprine 10 MG Tab PO PRN (10:06)
== END 2019-06-17 11:02 | disposition home or self-care (01) | DRG 807 ==
LOC: JD.OB 08:24 → OBSVTOIN 06-15 08:24 → EEVIPCON 06-15 08:24 → JD.OB 06-15 08:45
PROVIDERS: ADMIT Obstetrics & Gynecology; ATTEND Obstetrics & Gynecology
PROC: 10E0XZZ Delivery of Products of Conception, External Approach (ICD-10-PCS; principal; 2019-06-15)
PROC: 10907ZC Drainage of Amniotic Fluid, Therapeutic from Products of Conception, Via Natural or Artificial Opening (ICD-10-PCS; 2019-06-15)
PROC: 3E033VJ Introduction of Other Hormone into Peripheral Vein, Percutaneous Approach (ICD-10-PCS; 2019-06-15)
PROC: 3E0R3BZ Introduction of Anesthetic Agent into Spinal Canal, Percutaneous Approach (ICD-10-PCS; 2019-06-15)
DX: O99.344 Other mental disorders complicating childbirth (principal); Z37.0 Single live birth; F41.9 Anxiety disorder, unspecified; F31.9 Bipolar disorder, unspecified; F43.10 Post-traumatic stress disorder, unspecified; Z87.891 Personal history of nicotine dependence; Z3A.40 40 weeks gestation of pregnancy
CPT/HCPCS: 36415; 59025; 59409; 80306; 85025; 85027; 86592; 87641; A9270-GY; J2590; J3010; J7120